=== PATIENT | female | born 1985 | race American Indian/Alaskan Native ===

== ENCOUNTER 2022-02-19 02:53 | Emergency (ER) | payer OTHER ==
[2022-02-19] MEDS ORDERED: AMOXICILLIN/K CLAV 875/125MG TAB PO ONE (05:12)
[2022-02-19] MEDS ORDERED: LIDOCAINE-MPF (1%) 10 MG/1 ML VIAL 5 ML INFILTRATI ONE (05:12)
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
[2022-02-19 06:27] VITALS: BP 136/75
== END 2022-02-19 06:26 | disposition home or self-care (01) ==
LOC: ED 02:53
DX: S00.551A Superficial foreign body of lip, initial encounter (principal); X58.XXXA Exposure to other specified factors, initial encounter; Y93.89 Activity, other specified; Y92.89 Other specified places as the place of occurrence of the external cause; Y99.8 Other external cause status
CPT/HCPCS: 99283; J3490; 99282